=== PATIENT | female | born 1945 | race Caucasian/White ===

== ENCOUNTER → 2018-05-16 | Outpatient (CLI) | payer OTHER | LOC: M.RAD 09:21 | DX: M79.671 Pain in right foot (principal); G20 Parkinson's disease ==

== ENCOUNTER → 2018-09-27 | Outpatient (CLI) | payer OTHER | LOC: M.RAD 10:16 | DX: M54.6 Pain in thoracic spine (principal) ==

== ENCOUNTER → 2018-10-24 | Outpatient (CLI) | payer OTHER | LOC: M.RAD 12:11 | DX: M40.294 Other kyphosis, thoracic region (principal); M54.6 Pain in thoracic spine; G89.29 Other chronic pain ==

== ENCOUNTER → 2019-06-18 | Outpatient (CLI) | payer OTHER | LOC: M.RAD 10:22 | DX: M81.0 Age-related osteoporosis without current pathological fracture (principal) ==